=== PATIENT | male | born 1990 | race Caucasian/White ===

== ENCOUNTER 2017-09-15 14:44 | Emergency (ER) | payer SELFPAY ==
[2017-09-15] MEDS ORDERED: fentaNYL 100 MCG/2 ML SDV IVPUSH ONE (14:54)
[2017-09-15] MEDS ORDERED: Metoclopramide 10 MG/2 ML SDV IVPUSH ONE (14:54)
--- NOTE | 2017-09-15 14:55 | EDM.PDOC ---
ED HPI GENERAL MEDICAL PROBLEM - General Chief Complaint: Lower Extremity Injury/Pain Stated Complaint: [facility] Time Seen by Provider: 09/15/17 14:53 Source of Information: Reports: Patient History Limitations: Reports: No Limitations - History of Present Illness INITIAL COMMENTS - FREE TEXT/NARRATIVE: 27-year-old male presents to the ED with acute injury to his right ankle. It's unclear exactly what happened but he states he was just adjusting himself in his bed when he hurt his ankle. On examination ankle appears deformed and malpositioned. He reports she's had it happen once in the past. Apparently he has no diagnosed medical condition such as either stab syndrome etc. 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 He states he has no formal diagnosis of hyper eleastic connective tissue disorder such as Ehlors-Danlos syndrome. . He has Asperger's syndrome or autism spectrum disorder. He reports that he has had a dislocation of his right ankle in the past with walking Onset: Today Onset Date: 09/15/17 Onset Time: 14:05 Duration: Minutes: Location: Reports: Lower Extremity, Right Quality: Reports: Ache, Throbbing Severity: Moderate Improves with: Reports: None Worsens with: Reports: Movement Context: Reports: Other (States he was just adjusting himself upwards in bed I pushing with his heels and he dislocated his ankle.). 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 [No Known Home Meds] 09/15/17 [History] Past Medical History Psychiatric History: Reports: Other (See Below) (Has Asperger's syndrome or autism spectrum disorder.) Social & Family History - Living Situation & Occupation Living situation: Reports: Single, with Family Occupation: Unemployed Review of Systems - Review of Systems Review Of Systems: See Below Constitutional: Reports: No Symptoms Eyes: Reports: No Symptoms Ears: Reports: No Symptoms Nose: Reports: No Symptoms Mouth/Throat: Reports: No Symptoms Respiratory: Reports: No Symptoms Cardiovascular: Reports: No Symptoms GI/Abdominal: Reports: No Symptoms Genitourinary: Reports: No Symptoms Musculoskeletal: Reports: Other (States he has hyper flexible joints.) Skin: Reports: No Symptoms Neurological: Reports: Other (Has diagnosed Asperger's syndrome.) Psychiatric: Reports: Anxiety ED EXAM, GENERAL - Physical Exam Exam: See Below Exam Limited By: No Limitations General Appearance: Alert (Very anxious man), WD/WN, Anxious, Moderate Distress Eye Exam: Bilateral Eye: Normal Inspection Respiratory/Chest: No Respiratory Distress, Lungs Clear, Normal Breath Sounds, No Accessory Muscle Use Cardiovascular: Normal Peripheral Pulses, Regular Rate, Rhythm, No Edema, No Gallop, No Murmur Peripheral Pulses: 1+: Dorsalis Pedis (R), 2+: Dorsalis Pedis (L) GI/Abdominal: Normal Bowel Sounds, Soft, Non-Tender, No Organomegaly, No Distention Extremities: Other (On testing the patient does have significant hyperelastic joints. I continue to place his thumb on his ADL wrist. All of his fingers have lax joints as does his elbow etc.) Neurological: Alert, Oriented, CN II-XII Intact, Normal Cognition Psychiatric: Anxious Skin Exam: Warm, Dry, Intact, Normal Color, No Rash ED TRAUMA EXTREMITY PROCEDURES - Splinting Right Lower Extremity Splint Site: Low knee Ortho-Glass splint Pre-Procedure NV Status: Normal Post-Procedure NV Status: Normal Splint Material: Fiberglass Splint Design: Stirrup, Posterior Applied & Form Fitted By: Provider Provider Post-Splint Application NV Check: NV Status Normal, Good Position Complications: No ED PROCEDURAL SEDATION - Pre Procedure Indications: other (Reduction dislocated right ankle) Preparations: procedure explained, consent signed, oxygen, continuous pulse oximeter, suction, continuous field handyman, constant attendance - Physical Exam Airway: normal anatomy Cardiovascular: normal heart sounds Respiratory: normal breath sounds Neurological: alert Meilampati Classification: 1 (soft palate, anterior/posterior tonsillar pillars , uvula visible) - Procedure Sedation Sedation: versed (parenteral) (5 mg), fentanyl (100 g) ASA Classification: 2 (Patient with a mild systemic disease) - Intra Procedure Condition during procedure: lightly sedated, oxygenation stable, maintained airway well, handled secretions adequately Complications: none Reversal: none - Post Procedure Condition after procedure: responds to verbal stimuli - Discharge Condition Patient returned to pre-procedure baseline: Yes Alert prior to discharge: Yes Ambulatory with assistance: Yes Vital signs normal: Yes Time spent with sedated patient: 10 min Course - Vital Signs Last Recorded V/S: Last Vital Signs Temp 36.2 C 09/15/17 14:51 Pulse 90 09/15/17 14:51 Resp 16 09/15/17 14:51 BP 126/95 H 09/15/17 14:51 Pulse Ox 98 09/15/17 14:51 - Orders/Labs/Meds Orders: Active Orders 24 hr Category Date Time Status Ankle Min 3V Rt [CR] Stat Exams 09/15/17 15:51 Taken Sodium Chloride 0.9% [Normal Saline] 1,000 ml Med 09/15/17 15:00 Active IV ASDIRECTED Medication Orders Sodium Chloride (Normal Saline) 1,000 mls @ 150 mls/hr IV ASDIRECTED TAM Last Admin: 09/15/17 15:04 Dose: 150 mls/hr Meds: Medications Generic Name Dose Route Start Last Admin Trade Name Freq PRN Reason Stop Dose Admin Sodium Chloride 1,000 mls @ 150 mls/hr 09/15/17 15:00 09/15/17 15:04 Normal Saline IV 150 mls/hr ASDIRECTED TAM Administration Discontinued Medications Generic Name Dose Route Start Last Admin Trade Name Freq PRN Reason Stop Dose Admin Fentanyl 50 mcg 09/15/17 14:54 09/15/17 15:06 Sublimaze IVPUSH 09/15/17 14:55 50 mcg ONETIME ONE Administration Fentanyl 100 mcg 09/15/17 15:25 09/15/17 15:42 Sublimaze IVPUSH 09/15/17 15:26 50 mcg ONETIME ONE Administration Lidocaine HCl Confirm 09/15/17 14:57 09/15/17 15:08 Xylocaine-Mpf 1% Administered 09/15/17 14:58 Not Given Dose 2 mls @ as directed .ROUTE .STK-MED ONE Lidocaine HCl 2 ml 09/15/17 15:11 09/15/17 15:00 Xylocaine-Mpf 1% INJECT 09/15/17 15:12 2 ml ONETIME ONE Administration Metoclopramide HCl 7.5 mg 09/15/17 14:54 09/15/17 15:05 Reglan IVPUSH 09/15/17 14:55 7.5 mg ONETIME ONE Administration Midazolam HCl 5 mg 09/15/17 15:24 09/15/17 16:01 Versed 1 Mg/Ml IVPUSH 09/15/17 15:25 Not Given ONETIME ONE Midazolam HCl Confirm 09/15/17 15:40 09/15/17 16:01 Versed 1 Mg/Ml Administered 09/15/17 15:41 Not Given Dose 6 mg .ROUTE .STK-MED ONE Midazolam HCl 5 mg 09/15/17 15:57 09/15/17 15:43 Versed 1 Mg/Ml IVPUSH 09/15/17 15:58 1 mg ONETIME ONE Administration - Radiology Interpretation Free Text/Narrative:: 27-year-old male who has known Asperger's syndrome or autism spectrum disorder elicit the ED with acute injury to his right ankle. He states he injured his right ankle simply by pushing himself up in bed i.e. heal first. 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 He has no formal diagnosis of Ehlors- Danlos syndrome or other congenital connective tissue disorder etc. Plan IV will be started. He will receive fennel 50 g IV with Reglan 7.5 mg IV. X-rays of his ankle will then be obtained - Re-Assessments/Exams Free Text/Narrative Re-Assessment/Exam: 09/15/17 15:36 x-rays of his ankle reveal that he has a tibiotalar dislocation with lateral dislocation /angulation of the talus. There is a component of rotation where the calcaneus has rotated slightly medially as well. Plan he will require conscious sedation 1 and we will utilize Versed and fentanyl to provide conscious sedation to relocate his joint. X-rays will be done post reduction to confirm that there are no FRACTURES. He will be immobilized in a Ortho-Glass posterior slab and stirrup splint. 09/15/17 15:40: Utilized Versed 5 mg in total with 100 g of fentanyl IV to provide conscious sedation. Reduced right ankle with traction and lateral ankle pressure. Reduction accomplished easily on first attempt. Position maintained and then ankle immobilized in a Ortho-Glass posterior slab and stirrup splint. Patient tolerated the procedure very well. He was still able to speak daily after the procedure ie. lightly sedated. Post reduction films to be obtained. 09/15/17 16:06 post reduction films reveal return to anatomical position and I cannot identify any fractures in the dome of the talus and the ankle mortise appears to have returned to normal position. When he recovers from the conscious sedation he'll be discharged to home on crutches nonweightbearing. He will follow-up with Dr. Willis in clinic next week. 09/15/17 16:10 Patient is alert and answers all questions quite appropriately. Will attempt to get him up sitting and then to use crutches in 15-20 minutes. 09/15/17 16:50: His up and able to use crutches quite well. Will be discharged to home. He'll be followed up in clinic as noted above. Patient has he has hyper elasticity of his joint should also have an echocardiogram performed on a yearly basis to have a look at the arch of his aorta as he is at risk of aortic aneurysm/dissection. Departure - Departure Time of Disposition: 16:50 Disposition: Home, Self-Care 01 Condition: Fair Clinical Impression: Spontaneous dislocation of right ankle - Discharge Information Forms: ED Department Discharge Additional Instructions: Evaluation the emergency room today in regards to spontaneous dislocation of right ankle at the tibiotalar joint. This occurred just while attempting to boost herself up in bed with your heel first. Examination identified hyperelastic joints which contributes to spontaneous joint dislocation. You require conscious sedation to reduce her ankle back into normal position. You are immobilized in a Ortho-Glass splint and this is to remain on until follow- up with Dr. Diego orthopedic surgeon in clinic next week. Decision will be made at that time by Dr. Ken ashraf for a period of time to allow the ligaments to heal etc. this will determine how long it will be that he for you can return to work. Elevate and ice the ankle for the next 2 days. Motrin or Aleve as needed for pain relief. - My Orders Last 24 Hours: My Active Orders 09/15/17 15:00 Sodium Chloride 0.9% [Normal Saline] 1,000 ml IV ASDIRECTED 09/15/17 15:51 Ankle Min 3V Rt [CR] Stat - Assessment/Plan Last 24 Hours: My Active Orders 09/15/17 15:00 Sodium Chloride 0.9% [Normal Saline] 1,000 ml IV ASDIRECTED 09/15/17 15:51 Ankle Min 3V Rt [CR] Stat
[2017-09-15] MEDS ORDERED: Lidocaine 1% 2 ML ONE (14:57)
[2017-09-15] MEDS ORDERED: Sodium Chloride 0.9% 1,000 ML IV SCH (15:00)
[2017-09-15] MEDS ORDERED: Lidocaine 1% PF 2 ML SDV INJECT ONE (15:11)
[2017-09-15] MEDS ORDERED: Midazolam 1 MG/ML 5 ML SDV IVPUSH ONE (15:24)
[2017-09-15] MEDS: fentaNYL 100 MCG/2 ML SDV IVPUSH ONE ×2 (15:37→15:42)
[2017-09-15] MEDS: Midazolam 1 MG/ML 2 ML SDV IVPUSH ONE ×3 (15:38→15:43)
[2017-09-15] MEDS ORDERED: Midazolam 1 MG/ML 2 ML SDV ONE (15:40)
--- NOTE | 2017-09-15 15:45 | CR ---
Right ankle: Three views of the right ankle were obtained. Comparison: Prior right ankle exam of 10/21/13. Dislocation is noted of the tibiotalar joint with angulation being seen in a lateral direction of the talus. Soft tissue swelling is seen. No additional abnormality is noted. Impression: 1. Dislocation at the tibiotalar joint as noted above. Diagnostic code #3
--- NOTE | 2017-09-15 20:10 | CR ---
Right ankle: Four views of the right ankle were obtained. Comparison: Previous right ankle study performed earlier on the same day (3:05 PM) Previous dislocation has been reduced. Questionable fracture within the medial talus is seen on one view. This is difficult to confirm due to artifact from fiberglass cast. No additional abnormality is seen through the cast. Impression: 1. Reduction of previous dislocation. 2. Questionable fracture as described above Diagnostic code #3
== END 2017-09-15 16:54 | disposition home or self-care (01) ==
LOC: JD.ED 14:44
DX: S93.04XA Dislocation of right ankle joint, initial encounter (principal); X58.XXXA Exposure to other specified factors, initial encounter
CPT/HCPCS: 27840; 29515; 73610; 96361; 96374; 96375; 96376; 99152; 99153; 99284; J2250; J2765; J3010; J7040; 29505; 99283

== ENCOUNTER 2018-08-20 11:48 | Emergency (ER) | payer MEDICAID ==
--- NOTE | 2018-08-20 12:00 | EDM.PDOC ---
ED HPI GENERAL MEDICAL PROBLEM - General Chief Complaint: Back Pain or Injury Stated Complaint: LOW BACK PAIN Time Seen by Provider: 08/20/18 11:59 Source of Information: Reports: Patient History Limitations: Reports: No Limitations - History of Present Illness INITIAL COMMENTS - FREE TEXT/NARRATIVE: 28-year-old male attends the ED with acute onset of right-sided flank low back pain and right lower abdominal pain. He also has a constant feeling of need to void. Complains of some dysuria and burning in his urethra. Did not no cine discharge per urethra. No fever or chills. He that he was cause pain to take some oral laxatives last night and his bowels have workplace so far today. No relief of the discomfort. No history of kidney stones. No nausea vomiting. No previous abdominal surgery. Onset: Today Onset Date: 08/20/18 Onset Time: 08:00 Duration: Hour(s): Location: Reports: Back (Right lower back pain rating into the right groin.) Quality: Reports: Ache, Sharp, Stabbing Severity: Moderate Improves with: Reports: None Worsens with: Reports: None Context: Denies: Activity, Exercise, Lifting, Sick Contact, Trauma, Other Associated Symptoms: Reports: Other (Dysuria or pain within his penile urethra.) . 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 Right Back Pain Score (Numeric/FACES): 8 - Related Data Allergies Allergy/AdvReac Type Severity Reaction Status Date / Time No Known Allergies Allergy Verified 08/20/18 11:57 Home Meds: Home Meds Ondansetron [Zofran] 4 mg BUCCAL Q6H PRN #5 tab 08/20/18 [Rx] oxyCODONE HCl/Acetaminophen [Percocet 5-325 mg Tablet] 1 - 2 each PO Q4H PRN # 14 tablet 08/20/18 [Rx] Past Medical History - Past Health History Medical/Surgical History: Denies Medical/Surgical History Psychiatric History: Reports: Other (See Below) (Has Asperger's syndrome or autism spectrum disorder.) Social & Family History - Living Situation & Occupation Living situation: Reports: Single, with Family Occupation: Unemployed ED ROS GENERAL - Review of Systems Review Of Systems: See Below Constitutional: Denies: Fever, Chills, Malaise, Weakness, Fatigue, Decreased Appetite, Weight Loss HEENT: Reports: No Symptoms Respiratory: Reports: No Symptoms Cardiovascular: Reports: No Symptoms Endocrine: Reports: No Symptoms GI/Abdominal: Reports: Constipation : Reports: Dysuria Musculoskeletal: Reports: Back Pain Skin: Reports: No Symptoms (Right flank and low back discomfort.) Neurological: Reports: No Symptoms Psychiatric: Reports: No Symptoms Hematologic/Lymphatic: Reports: No Symptoms Immunologic: Reports: No Symptoms ED EXAM,LOWER BACK PAIN/INJURY - Physical Exam Exam: See Below Exam Limited By: No Limitations General Appearance: Alert, WD/WN, Anxious, Mild Distress Eye Exam: Bilateral Eye: Normal Inspection Head: Atraumatic, Normocephalic Neck: Normal Inspection, Supple, Full Range of Motion. No: Lymphadenopathy (L) , Lymphadenopathy (R) Respiratory/Chest: No Respiratory Distress, Lungs Clear, Normal Breath Sounds, No Accessory Muscle Use Cardiovascular: Normal Peripheral Pulses, Regular Rate, Rhythm, No Edema, No Gallop, No Murmur, No Rub GI/Abdominal: Non-Tender, No Organomegaly, Abnormal Bowel Sounds (Bowel sounds are mildly hyperactive in all 4 quadrants.), Other (Palpable right hemicolon.). No: Guarding, Rigid, Rebound, Tender Back Exam: Normal Inspection, Full Range of Motion. No: CVA Tenderness (L), CVA Tenderness (R), Muscle Spasm Extremities: Normal Inspection, Normal Range of Motion, Non-Tender, No Pedal Edema Neurological: Alert, Normal Mood/Affect, Normal Dorsiflexion, CN II-XII Intact Psychiatric: Normal Affect, Normal Mood Skin Exam: Warm, Dry, Intact, Normal Color, No Rash Course - Vital Signs Last Recorded V/S: Last Vital Signs Temp 36.4 C 08/20/18 11:54 Pulse 81 08/20/18 11:54 Resp 18 08/20/18 11:54 BP 126/85 08/20/18 11:54 Pulse Ox 96 08/20/18 11:54 - Orders/Labs/Meds Orders: Active Orders 24 hr Category Date Time Status Abdomen 1V Flat [CR] Stat Exams 08/20/18 12:04 Taken Ketorolac [Toradol] Med 08/20/18 12:30 Active 30 mg IVPUSH ONETIME Sodium Chloride 0.9% [Normal Saline] 1,000 ml Med 08/20/18 12:30 Active IV ASDIRECTED Medication Orders Sodium Chloride (Normal Saline) 1,000 mls @ 150 mls/hr IV ASDIRECTED TAM Last Admin: 08/20/18 12:28 Dose: 150 mls/hr Ketorolac Tromethamine (Toradol) 30 mg IVPUSH ONETIME TAM Last Admin: 08/20/18 12:29 Dose: 30 mg Labs: Laboratory Tests 08/20/18 Range/Units 13:41 Urine Color Dark yellow (Yellow) Urine Appearance Slt cloudy H (Clear) Urine pH 6.0 (5.0-8.0) Ur Specific [place] > or = 1.030 (1.005-1.030) Urine Protein 2+ H (Negative) Urine Glucose (UA) Negative (Negative) Urine Ketones Trace H (Negative) Urine Occult Blood Trace-intact H (Negative) Urine Nitrite Negative (Negative) Urine Bilirubin Negative (Negative) Urine Urobilinogen 0.2 (0.2-1.0) Ur Leukocyte Esterase Negative (Negative) Urine RBC 0-5 (0-5) /hpf Urine WBC 0-5 (0-5) /hpf Ur Epithelial Cells 0-5 (0-5) /hpf Paul Biurate Crystals Moderate H (NONE) /hpf Urine Bacteria Few (FEW) /hpf Urine Mucus Few (FEW) /hpf Meds: Medications Generic Name Dose Route Start Last Admin Trade Name Freq PRN Reason Stop Dose Admin Sodium Chloride 1,000 mls @ 150 mls/hr 08/20/18 12:30 08/20/18 12:28 Normal Saline IV 150 mls/hr ASDIRECTED TAM Administration Ketorolac Tromethamine 30 mg 08/20/18 12:30 08/20/18 12:29 Toradol IVPUSH 30 mg ONETIME TAM Administration Discontinued Medications Generic Name Dose Route Start Last Admin Trade Name Freq PRN Reason Stop Dose Admin Hydromorphone HCl 0.5 mg 08/20/18 12:22 08/20/18 12:29 Dilaudid IVPUSH 08/20/18 12:23 0.5 mg ONETIME ONE Administration Hydromorphone HCl 0.5 mg 08/20/18 14:06 08/20/18 14:13 Dilaudid IVPUSH 08/20/18 14:07 0.5 mg ONETIME ONE Administration Metoclopramide HCl 7.5 mg 08/20/18 12:22 08/20/18 12:28 Reglan IVPUSH 08/20/18 12:23 7.5 mg ONETIME ONE Administration - Radiology Interpretation Free Text/Narrative:: 28-year-old male presents to the ED with right light low back pain that came on acutely this morning. He also complains of pain in his penis or urethra. It's difficult to ascertain that's true dysuria as it's not necessarily present with voiding. No urethral discharge. Pain came on abruptly suspicious for kidney stone at the UVJ. However examination reveals bowel sounds were quite active in all 4 quadrants and a palpable right hemicolon. He may be secondary to constipation. Plan urinalysis and a KUB to be done. - Re-Assessments/Exams Free Text/Narrative Re-Assessment/Exam: 08/20/18 12:19 KUB reveals slight amount of stool throughout the colon but no sign of bowel obstruction no sign of kidney stone. 08/20/18 12:45: Since returning from the x-ray suite patient's pain suddenly worsened in his right lower back associate with development of nausea and vomiting. His is much more characteristic of suspect kidney stone. I am he will receive IV fluids D5 normal saline at 150 mils per hour. Will give Dilaudid 0.5 mg IV with Reglan 7.5 mg IV and Toradol 30 mg IV for acute pain and nausea relief. Plan will be to CT his abdomen per renal protocol once he has settled down. 08/20/18 13:35 CT the abdomen and pelvis has been completed per renal protocol. Liver appears normal gallbladder does not show any signs of calcified gallstones. Pancreas and spleen appear normal. There is mildly increased stool throughout the right hemicolon and transverse colon. The right kidney does show some degree of hydronephrosis with hydroureter that extends all the way down to the pelvis. I cannot identify is obstructing stone within the ureter however. I suspect this may be a uric acid stone. Will await the radiologist's report. The urinalysis is slightly cloudy. It does reveal 2+ proteinuria trace of intact blood. Moderate ammonium bi- urate crystals. 08/20/18 14:06 patient reports pain is down to a 4 out of 10. He feels it primarily in his right groin. CT radiologist reports a 1-2 mm stone at the UVJ on the right side. I will give him another 0.5 mg of Dilaudid for pain relief. 08/20/18 14:35: Pretty well pain free. He will be discharged to home and to strain his urine until stone is noted to have passed. Will give him a prescription for Zofran 4 mg sublingual every 6 hours. For nausea or vomiting relief. Percocet tabs 5/325 mg one or 2 at onset of recurrence of pain until the stone is passed. Every 4 hours as needed. 14 tablets provided Departure - Departure Time of Disposition: 14:30 Disposition: Home, Self-Care 01 Condition: Fair Clinical Impression: Renal colic on right side - Discharge Information *PRESCRIPTION DRUG MONITORING PROGRAM REVIEWED*: Not Applicable *COPY OF PRESCRIPTION DRUG MONITORING REPORT IN PATIENT [id number]: Not Applicable Prescriptions: Ondansetron [Zofran] 4 mg BUCCAL Q6H PRN #5 tab PRN Reason: nausea or vomiting oxyCODONE HCl/Acetaminophen [Percocet 5-325 mg Tablet] 1 - 2 each PO Q4H PRN # 14 tablet PRN Reason: pain relief. Instructions: Renal Colic, [id number] Referrals: PCP,None [Primary Care Provider] - Forms: ED Department Discharge, ED Return to Work/School Form Additional Instructions: Evaluation the emergency room today in regards to acute onset of right lower back pain radiating slightly into the right groin. Initially pain wasn't too bad but while you were in the ED the pain increased in intensity and produce nausea and vomiting more characteristic of a kidney stone. Films of the abdomen did not show any obvious stone in the kidneys or in the lower abdomen. Increased stool is noted throughout the right colon. ET of the abdomen was performed per renal protocol identified a 1-2 mm stone in the lower pelvis about a half an inch above the junction with the urinary bladder. Therefore the stone doesn't have very much further to travel once it's a new urinary bladder you develop more pain. It is likely to pass into the urinary bladder today or tomorrow. Pain returns take Zofran 4 mg under tongue and 2 tablets of Percocet by mouth to relieve pain. You're treated in the ER with IV fluids and IV Dilaudid and Reglan and Toradol for pain relief. At this time no other stones were identified in your kidneys tissues to be a problem in the near future. No calcium added diet is advised and not to use Tums or Rolaids. Strain the urine at home until you see if the stone has passed. He will probably need to pick it up and feel it to prove that is feels like a small pebble or stone. He looking for something about the size of a sesame seed. - My Orders Last 24 Hours: My Active Orders 08/20/18 12:04 Abdomen 1V Flat [CR] Stat 08/20/18 12:30 Ketorolac [Toradol] 30 mg IVPUSH ONETIME Sodium Chloride 0.9% [Normal Saline] 1,000 ml IV ASDIRECTED - Assessment/Plan Last 24 Hours: My Active Orders 08/20/18 12:04 Abdomen 1V Flat [CR] Stat 08/20/18 12:30 Ketorolac [Toradol] 30 mg IVPUSH ONETIME Sodium Chloride 0.9% [Normal Saline] 1,000 ml IV ASDIRECTED
[2018-08-20] MEDS ORDERED: HYDROmorphone 1 MG/ML Syringe IVPUSH ONE ×2 (12:22→14:06)
[2018-08-20] MEDS ORDERED: Metoclopramide 10 MG/2 ML SDV IVPUSH ONE (12:22)
[2018-08-20] MEDS ORDERED: Ketorolac 30 MG/ML SDV IVPUSH SCH (12:30)
[2018-08-20] MEDS ORDERED: Sodium Chloride 0.9% 1,000 ML IV SCH (12:30)
--- NOTE | 2018-08-20 13:34 | CT ---
CT abdomen and pelvis Technique: Multiple axial sections were obtained were obtained from the mid kidneys inferiorly through the pubic symphysis. Intravenous and oral contrast not utilized. Study has been performed as a ureteral stone protocol. Findings: Right ureter is mildly prominent. There is a small calcification being seen in the region of the right UVJ measuring about 1.5-2 mm. This presumably is the etiology for the right ureteral dilatation representing small stone. No other abnormal calcifications are seen along the course of the ureters. No other abnormal calcifications are seen within the visualized kidneys. Visualized portions of the lower liver and spleen shows no discrete abnormality. Visualized portions of pancreas are unremarkable. Small portion of the visualized adrenal glands show no nodule. Gallbladder contains no calcified gallstones. Aorta shows no aneurysmal dilatation. No retroperitoneal adenopathy is seen. Appendix is seen which is normal in size. No pelvic mass or adenopathy is seen. Impression: 1. Mildly prominent right ureter which is felt to be caused by a small 1.5-2 mm stone within the distal right ureter at the UVJ. 2. No additional abnormality is seen on noncontrast CT study of the abdomen and pelvis performed as a ureteral stone protocol. Diagnostic code #3
--- NOTE | 2018-08-20 17:22 | CR ---
Abdomen: Supine view of the abdomen was obtained. Comparison: No previous abdominal x-ray. Bowel gas pattern is normal. Bony structures appear within normal limits. No abnormal calcifications or soft tissue abnormality is appreciated. Impression: 1. Nothing acute is seen on supine abdominal x-ray. Diagnostic code #2
== END 2018-08-20 14:46 | disposition home or self-care (01) ==
LOC: JD.ED 11:48
DX: N13.2 Hydronephrosis with renal and ureteral calculous obstruction (principal)
CPT/HCPCS: 74018; 74176; 81001; 96361; 96374; 96375; 96376; 99284; J1170; J1885; J2765; J7040

== ENCOUNTER 2019-04-26 16:04 | Emergency (ER) | payer MEDICAID ==
--- NOTE | 2019-04-26 17:14 | EDM.PDOC ---
ED HPI GENERAL MEDICAL PROBLEM - General Chief Complaint: General Stated Complaint: [facility]UE-SENT FROM [facility] Time Seen by Provider: 04/26/19 16:17 Source of Information: Reports: Patient, RN Notes Reviewed - History of Present Illness INITIAL COMMENTS - FREE TEXT/NARRATIVE: 28-year-old male has been transferred here from [facility] further evaluation, probable transfer for hospital admission for generalized weakness, balance difficulty, severe difficulty walking. He first started began feeling ill about 3 weeks ago with onset of fatigue, generalized weakness and intermittent nausea and vomiting. Over the last few days it has become impossible for him to walk without assistance. He states he is almost passed out on several occasions and also has almost fallen on several occasions due to difficulty maintaining balance. He has had occasional mild headache. No chest or abdominal pain at this time. No recent fever or chills. He denies neck or back discomfort at this time. He did have CBC and chemistries checked at the clinic. Those have been reviewed. White blood count was increased at 14,200. Differential was relatively normal. Platelets 428,000, Hgb 18.4, Chemistries, CRP, TSH nl. He has no current headache or visual difficulty. He states he has had occasional blurriness of vision past but no acute visual symptoms at this time. Bilateral Leg Pain Score (Numeric/FACES): 5 - Related Data Allergies Allergy/AdvReac Type Severity Reaction Status Date / Time No Known Allergies Allergy Verified 04/26/19 16:34 Home Meds: Home Meds . [No Known Home Meds] 04/26/19 [History] Past Medical History - Past Health History Medical/Surgical History: Denies Medical/Surgical History Genitourinary History: Reports: Renal Calculus Psychiatric History: Reports: Other (See Below) Social & Family History - Tobacco Use Smoking Status *Q: Never Smoker - Caffeine Use Caffeine Use: Reports: Soda - Living Situation & Occupation Living situation: Reports: Single, with Family Occupation: Unemployed ED ROS GENERAL - Review of Systems Review Of Systems: See Below Constitutional: Denies: Fever, Chills, Diaphoresis HEENT: Denies: Rhinitis, Throat Pain, Vertigo Respiratory: Denies: Shortness of Breath Cardiovascular: Denies: Chest Pain GI/Abdominal: Reports: Nausea, Vomiting. Denies: Abdominal Pain, Diarrhea, Hematochezia, Melena : Reports: No Symptoms Musculoskeletal: Reports: Other (There has been generalized achiness). Denies: Neck Pain, Back Pain Skin: Denies: Rash Neurological: Reports: Dizziness, Headache (He does feel off balance when standing and walking occasional mild), Difficulty Walking (Generalized), Weakness. Denies: Numbness, Tingling, Trouble Speaking ED EXAM, GENERAL - Physical Exam Exam: See Below General Appearance: Alert, No Apparent Distress (At rest) Eye Exam: Bilateral Eye: PERRL Throat/Mouth: Normal Inspection, Normal Oropharynx Head: Atraumatic. No: Facial Swelling Neck: Supple, Full Range of Motion. No: Lymphadenopathy (L), Lymphadenopathy (R ) Respiratory/Chest: No Respiratory Distress, Lungs Clear, Normal Breath Sounds Cardiovascular: Regular Rate, Rhythm GI/Abdominal: Soft, Non-Tender Back Exam: No: CVA Tenderness (L), CVA Tenderness (R) Extremities: Normal Inspection, Normal Range of Motion Neurological: Alert, Oriented, Other (He does have difficulty with finger to nose testing, mild ataxia, difficulty finding his nose, he also has difficulty raising his legs off of the cot, when I did get him up to stand and walk he did require his mother and I holding each arm for balance assistance and then he did walk with slow shuffling steps, unable to walk on his own, distal sensation intact upper and lower extremities.) EKG INTERPRETATION EKG Date: 04/26/19 Rhythm: Other Rate (Beats/Min): 101 [place]: Normal P-Wave: Present QRS: Normal ST-T: Normal Course - Vital Signs Last Recorded V/S: Last Vital Signs Temp 98.4 F 04/26/19 16:31 Pulse 82 04/26/19 16:31 Resp 18 04/26/19 16:31 BP 110/81 04/26/19 16:31 Pulse Ox 99 04/26/19 16:31 - Orders/Labs/Meds Orders: Active Orders 24 hr Category Date Time Status EKG 12 Lead [EKG Documentation Completion] [RC] STAT Care 04/26/19 17:08 Active - Re-Assessments/Exams Free Text/Narrative Re-Assessment/Exam: 04/26/19 20:[address] Reyez sent the patient over to the ED for basically a second opinion and strong consideration for hospital admission or transfer. I agree that his symptoms of current inability to walk without strong assistance, inability to lift his legs up off the cot, ataxia with [id number] testing along with progression of generalized weakness, etiology unclear demand further urgent workup. I have called [facility]. 1 call nurse did discuss this with neurologist on-call who is recommended patient be transferred urgently to the emergency department where emergency MRI can be obtained and then admitted for further eval and treatment as indicated. Dr Bajwa, [facility] ED accepting Physician. Mother has requested that she drive him to [place] private vehicle rather than making him go by ambulance. Because his sx have progressed over days, possibly 2 to 3 weeks, vitals and labs stable, no respiratory distress or difficulty breathing at this time I am OK with that. He is discharged to care of mother with advice to go straight to [facility] ED. Departure - Departure Time of Disposition: 17:47 Disposition: DC/Tfer to Acute Hospital 02 Condition: Serious Clinical Impression: Generalized weakness, Difficulty walking - Discharge Information Instructions: Weakness, [id number] Referrals: Pierre Reyez Jr, MD [Primary Care Provider] - Forms: ED Department Discharge Additional Instructions: Transfer to [facility] now. Miguel Ángel will be admitted through the ED so take him directly to [facility]. Take the medical record from the clinic with you. - My Orders Last 24 Hours: My Active Orders 04/26/19 17:08 EKG 12 Lead [EKG Documentation Completion] [RC] STAT - Assessment/Plan Last 24 Hours: My Active Orders 04/26/19 17:08 EKG 12 Lead [EKG Documentation Completion] [RC] STAT
== END 2019-04-26 18:02 ==
LOC: JD.ED 16:04
DX: R53.1 Weakness (principal); R26.2 Difficulty in walking, not elsewhere classified
CPT/HCPCS: 93005; 93010; 99284; 99285-25

== ENCOUNTER 2020-07-22 03:49 | Emergency (ER) | payer MEDICAID, OTHER ==
--- NOTE | 2020-07-22 03:54 | EDM.PDOC ---
ED HPI GENERAL MEDICAL PROBLEM - General Chief Complaint: Lower Extremity Injury/Pain Stated Complaint: [facility] Time Seen by Provider: 07/22/20 03:54 - History of Present Illness INITIAL COMMENTS - FREE TEXT/NARRATIVE: 30-year-old male presents the emergency room brought in by EMS after falling a few feet while getting down a ladder. Patient fell landing on his right foot he thinks he dislocated his ankle again. He also landed on his buttocks and has some discomfort in his tailbone. Patient denies any other injury associated with his most unfortunate event. The patient has dislocated his right ankle in the past and has been told he has ligament laxity. He has never been diagnosed with Bryan-Danlos or other such conditions. Patient denies any other medical problems. He did not hit his head. Right Ankle Pain Score (Numeric/FACES): 8 - Related Data Allergies Allergy/AdvReac Type Severity Reaction Status Date / Time No Known Allergies Allergy Verified 07/22/20 03:54 Home Meds: Home Meds Acetaminophen/HYDROcodone [[place] 325-5 MG] 1 - 2 tab PO Q6H PRN #15 tablet 07/22/20 [Rx] Past Medical History - Past Health History Medical/Surgical History: Denies Medical/Surgical History Genitourinary History: Reports: Renal Calculus Psychiatric History: Reports: Other (See Below) Social & Family History - Caffeine Use Caffeine Use: Reports: Soda - Living Situation & Occupation Living situation: Reports: Single, with Family Occupation: Unemployed Review of Systems - Review of Systems Review Of Systems: See Below Constitutional: Reports: No Symptoms Eyes: Reports: No Symptoms Ears: Reports: No Symptoms Nose: Reports: No Symptoms Mouth/Throat: Reports: No Symptoms Respiratory: Reports: No Symptoms Cardiovascular: Reports: No Symptoms GI/Abdominal: Reports: No Symptoms Musculoskeletal: Reports: Leg Pain Skin: Reports: No Symptoms Neurological: Reports: No Symptoms Psychiatric: Reports: No Symptoms ED EXAM, GENERAL - Physical Exam Exam: See Below Exam Limited By: No Limitations General Appearance: Alert, Moderate Distress (From his ankle pain, this does pretty well if he does not move it) Head: Atraumatic, Normocephalic Neck: Normal Inspection, Supple, Non-Tender, Full Range of Motion. No: Lymphadenopathy (L), Lymphadenopathy (R), Tender Lateral, Tender Midline Respiratory/Chest: No Respiratory Distress, Lungs Clear, Normal Breath Sounds Cardiovascular: Regular Rate, Rhythm, No Edema, No Murmur Peripheral Pulses: 2+: Posterior Tibial (L), Posterior Tibial (R), Dorsalis Pedis (L), Dorsalis Pedis (R) GI/Abdominal: Normal Bowel Sounds, Soft, Non-Tender Back Exam: Normal Inspection, Full Range of Motion. No: CVA Tenderness (L), CVA Tenderness (R), Muscle Spasm, Vertebral Tenderness Extremities: Other (Subtle deformity of the right ankle his ankle is very tender with any leg motion) Course - Vital Signs Last Recorded V/S: Last Vital Signs Temp 36.8 C 07/22/20 05:05 Pulse 77 07/22/20 05:18 Resp 12 07/22/20 05:18 BP 106/73 07/22/20 05:18 Pulse Ox 98 07/22/20 05:18 - Orders/Labs/Meds Orders: Active Orders 24 hr Category Date Time Status Notify Provider [RC] ASDIRECTED Care 07/22/20 05:07 Active Oxygen Therapy [RC] ASDIRECTED Care 07/22/20 05:07 Active Pulse Oximetry [RC] ASDIRECTED Care 07/22/20 05:07 Active Vital Signs [RC] Q15M Care 07/22/20 05:06 Active Ankle 2V Rt [CR] Stat Exams 07/22/20 03:52 Taken Ankle Min 3V Rt [CR] Stat Exams 07/22/20 04:56 Ordered Sacrum Coccyx Min 2V [CR] Stat Exams 07/22/20 05:40 Taken Lactated Ringers [Ringers, Lactated] 1,000 ml Med 07/22/20 04:30 Active IV ASDIRECTED DME for Discharge [COMM] Stat Oth 07/22/20 05:35 Ordered Durable Medical Equipment for Discharge [DME for Oth 07/22/20 04:34 Ordered Discharge] [COMM] Stat Medication Orders Lactated Ringer's (Ringers, Lactated) 1,000 mls @ 75 mls/hr IV ASDIRECTED TAM Last Admin: 07/22/20 04:20 Dose: 75 mls/hr Documented by: GANESH Meds: Medications Generic Name Dose Route Start Last Admin Trade Name Freq PRN Reason Stop Dose Admin Lactated Ringer's 1,000 mls @ 75 mls/hr 07/22/20 04:30 07/22/20 04:20 Ringers, Lactated IV 75 mls/hr ASDIRECTED TAM Administration Discontinued Medications Generic Name Dose Route Start Last Admin Trade Name Kimberlyn PRN Reason Stop Dose Admin Fentanyl Confirm 07/22/20 04:39 Sublimaze Administered 07/22/20 04:40 Dose 100 mcg .ROUTE .STK-MED ONE Hydromorphone HCl 1 mg 07/22/20 05:08 07/22/20 05:16 Dilaudid IVPUSH 07/22/20 05:09 1 mg ONETIME ONE Administration Lidocaine HCl Confirm 07/22/20 04:39 Xylocaine-Mpf 1% Administered 07/22/20 04:40 Dose 4 mls @ as directed .ROUTE .STK-MED ONE Midazolam HCl Confirm 07/22/20 04:40 Versed 1 Mg/Ml Administered 07/22/20 04:41 Dose 2 mg .ROUTE .STK-MED ONE Propofol Confirm 07/22/20 04:39 Diprivan 20 Ml Administered 07/22/20 04:40 Dose 400 mg .ROUTE .STK-MED ONE - Re-Assessments/Exams Free Text/Narrative Re-Assessment/Exam: 07/22/20 06:25 X-ray examination of the right ankle show a tibial talar dislocation dislocation with the talar dome resting up against the medial articulation of the fibula. No obvious fractures identified limited views because of discomfort. Anesthesia was utilized for procedural sedation. The joint was reduced into normal position confirmed by x-rays a posterior splint and stirrup splint was applied. Patient had good neurovascular status after this repeat x-rays were done that showed good alignment in the splint. X-rays of the coccyx were obtained a coccyx fracture is suspected and certainly cannot be excluded. 07/22/20 06:39 Case was discussed with Dr. Salinas on-call for bone and joint. He recommends having the patient follow-up with Dr. Conner Colon. Departure - Departure Time of Disposition: 06:28 Disposition: Home, Self-Care 01 Clinical Impression: Recurrent dislocation, right ankle, Fractured coccyx - Discharge Information Instructions: Crutch Use, Adult, [id number], Cast or Splint Care, Adult Referrals: PCP,None [Primary Care Provider] - Forms: ED Department Discharge Additional Instructions: Return to the emergency room with any questions problems or worsening symptoms. Follow-up with Dr. Conner Colon, orthopedic surgeon in [place]. You should be seen in 1 week or sooner. His phone number is [phone] You had a prescription for [place], hydrocodone this is a pain medication take 1 or 2 every 6 hours only if needed for pain. If you can control your pain with Tylenol do that. However, watch your daily Tylenol dosage over 24 hours do not exceed 4000 mg of Tylenol regular strength Tylenol contains 325 mg where the ext ra strength contains 500 mg of Tylenol. Your pain pills, the [place], or hydrocodone each contain 325 mg of Tylenol so keep a close track on this and never exceed 4000 mg in a 24-hour period. Sepsis Event Note (ED) - Evaluation Sepsis Screening Result: No Definite Risk - Focused Exam Vital Signs: Vital Signs Temp Pulse Resp BP Pulse Ox 07/22/20 05:18 77 12 106/73 98 07/22/20 05:05 36.8 C 78 18 106/73 97 07/22/20 03:52 37.1 C 101 H 16 128/77 95 - My Orders Last 24 Hours: My Active Orders 07/22/20 03:52 Ankle 2V Rt [CR] Stat 07/22/20 04:30 Lactated Ringers [Ringers, Lactated] 1,000 ml IV ASDIRECTED 07/22/20 04:34 Durable Medical Equipment for Discharge [DME for Discharge] [COMM] Stat 07/22/20 04:56 Ankle Min 3V Rt [CR] Stat 07/22/20 05:35 DME for Discharge [COMM] Stat 07/22/20 05:40 Sacrum Coccyx Min 2V [CR] Stat - Assessment/Plan Last 24 Hours: My Active Orders 07/22/20 03:52 Ankle 2V Rt [CR] Stat 07/22/20 04:30 Lactated Ringers [Ringers, Lactated] 1,000 ml IV ASDIRECTED 07/22/20 04:34 Durable Medical Equipment for Discharge [DME for Discharge] [COMM] Stat 07/22/20 04:56 Ankle Min 3V Rt [CR] Stat 07/22/20 05:35 DME for Discharge [COMM] Stat 07/22/20 05:40 Sacrum Coccyx Min 2V [CR] Stat
[2020-07-22] MEDS ORDERED: Lactated Ringers 1,000 ML IV SCH (04:30)
--- NOTE | 2020-07-22 04:35 | PCM.PREANE ---
Preanesthetic Assessment - Procedure Proposed Procedure: Closed Reduction of Right Ankle - Anesthesia/Transfusion/Family Hx Anesthesia History: No Prior Anesthesia Family History of Anesthesia Reaction: No Transfusion History: No Prior Transfusion(s) Intubation History: Unknown - Review of Systems General: No Symptoms Pulmonary: No Symptoms Cardiovascular: No Symptoms Gastrointestinal: Constipation Neurological: No Symptoms Other: Reports: None - Physical Assessment NPO Status Date: 07/22/20 NPO Status Time: 02:00 Vital Signs: Last Vital Signs Temp 37.1 C 07/22/20 03:52 Pulse 101 H 07/22/20 03:52 Resp 16 07/22/20 03:52 BP 128/77 07/22/20 03:52 Pulse Ox 95 07/22/20 03:52 Height: 1.8 m Weight: 62.142 kg ASA Class: 1E Mental Status: Alert & Oriented x3 Airway Class: Mallampati = 2 Dentition: Reports: Normal Dentition, Caries Thyro-Mental Finger Breadths: 3 Mouth Opening Finger Breadths: 3 ROM/Head Extension: Full Lungs: Clear to Auscultation, Normal Respiratory Effort Cardiovascular: Regular Rate, Regular Rhythm, No Murmurs - Imaging/EKG Impressions: 2019: EKG: ST-101 - Allergies Allergies/Adverse Reactions: Allergies Allergy/AdvReac Type Severity Reaction Status Date / Time No Known Allergies Allergy Verified 07/22/20 03:54 - Anesthesia Plan Pre-Op Medication Ordered: None - Acknowledgements Anesthesia Type Planned: MAC Pt an Appropriate Candidate for the Planned Anesthesia: Yes Alternatives and Risks of Anesthesia Discussed w Pt/Guardian: Yes Pt/Guardian Understands and Agrees with Anesthesia Plan: Yes PreAnesthesia Questionnaire - Past Health History Medical/Surgical History: Denies Medical/Surgical History Genitourinary History: Reports: Renal Calculus Psychiatric History: Reports: Other (See Below) - SUBSTANCE USE Tobacco Use Status *Q: Never Tobacco User Recreational Drug Use History: No - HOME MEDS Home Medications: Home Meds . [No Known Home Meds] 04/26/19 [History] - CURRENT (IN HOUSE) MEDS Current Meds: Current Medications Lactated Ringer's (Ringers, Lactated) 1,000 mls @ 75 mls/hr IV ASDIRECTED [facility] Last Admin: 07/22/20 04:20 Dose: 75 mls/hr Documented by:
[2020-07-22] MEDS ORDERED: Propofol 200 MG/20 ML SDV ONE (04:39)
[2020-07-22] MEDS ORDERED: fentaNYL 100 MCG/2 ML SDV ONE (04:39)
[2020-07-22] MEDS ORDERED: Lidocaine 1% 4 ML ONE (04:39)
[2020-07-22] MEDS ORDERED: Midazolam 1 MG/ML 2 ML SDV ONE (04:40)
--- NOTE | 2020-07-22 05:03 | PCM48HPAN ---
Post Anesthesia Note - EVALUATION WITHIN 48HRS OF ANESTHETIC Vital Signs in Normal Range: Yes Patient Participated in Evaluation: Yes Respiratory Function Stable: Yes Airway Patent: Yes Cardiovascular Function Stable: Yes Hydration Status Stable: Yes Pain Control Satisfactory: Yes Nausea and Vomiting Control Satisfactory: Yes Mental Status Recovered: Yes Vital Signs: Last Vital Signs Temp 37.1 C 07/22/20 03:52 Pulse 101 H 07/22/20 03:52 Resp 16 07/22/20 03:52 BP 128/77 07/22/20 03:52 Pulse Ox 95 07/22/20 03:52
[2020-07-22] MEDS ORDERED: HYDROmorphone 1 MG/ML Syringe IVPUSH ONE (05:08)
--- NOTE | 2020-07-22 08:10 | CR ---
Right ankle: 2 views of the right ankle were obtained. Comparison: No prior study. Dislocation is seen at the tibiotalar joint. Several bony densities are seen off the medial malleolus and between the medial malleolus and talar compatible with previous fractures, age of this is indeterminate. No additional abnormality is appreciated. Impression: 1. Dislocated tibiotalar joint. 2. Small bony densities off the medial ankle. Diagnostic code #5
--- NOTE | 2020-07-22 08:11 | CR ---
Right ankle: 4 radiographs of the right ankle were obtained. Comparison: Prior ankle exam performed earlier on the same day. Previous dislocation has been reduced. Small bony densities are seen off the medial ankle compatible with prior fractures. No additional abnormality is seen other than placement of fiberglass cast. Impression: 1. Previous dislocation has been reduced. 2. Fiberglass cast noted on final 2 films. 3. Bony densities off the medial ankle compatible with previous fractures. Diagnostic code #3
--- NOTE | 2020-07-22 08:11 | CR ---
Sacrum and coccyx: 3 views of the sacrum and coccyx were obtained. Comparison: No prior studies available for comparison. Findings: Portions of the coccyx do not line up normally. Possible acute fracture at the sacrococcygeal junction. Other portions of the sacrum appear normal. Sacroiliac joints are normal. Impression: 1. Several of the coccyx bones do not line up normally. This finding is most likely due to old injury. 2. Equivocal acute fracture at the sacrococcygeal junction. Diagnostic code #3
== END 2020-07-22 07:43 | disposition home or self-care (01) ==
LOC: JD.ED 03:49
DX: S32.2XXA Fracture of coccyx, initial encounter for closed fracture (principal); M24.471 Recurrent dislocation, right ankle; W11.XXXA Fall on and from ladder, initial encounter
CPT/HCPCS: 27840; 72220; 73600; 73610; 96374; 99284; J1170; J2001; J2250; J2704; J3010; J7120

== ENCOUNTER 2022-09-23 20:22 | Emergency (ER) | payer OTHER | END 2022-09-23 21:53 | disposition home or self-care (01) | LOC: JD.ED 20:22 | DX: M24.471 Recurrent dislocation, right ankle (principal) | CPT/HCPCS: 73610-26-RT; 73610-RT; 99284 ==